=== PATIENT | female | born 1980 | race Caucasian/White ===

== ENCOUNTER 2023-09-26 17:52 | Emergency (ER) | payer OTHER, SELFPAY ==
[2023-09-26 18:02] VITALS: BP 161/100; PULSE 73; RESP 18; TEMP 36.6; O2SAT 98; BMI 37.8
--- NOTE | 2023-09-26 18:05 | ED.GENADULT ---
HPI - General Adult General Chief complaint: Headache/Migraine Stated complaint: migraine x3 days Time Seen by Provider: 09/26/23 17:55 History of Present Illness HPI narrative: Patient c/o general headache all over since Tuesday. Patient states h/o on migraines, but not this bad. Patient c/o photosensitivit y and denies nausea. Patient recently finished a course of macrobid for a UTI. 43-year-old woman presenting to the emergency department with concern of a headache. There is underlying history of migraines apparently. Sounds like they were menstrual related. Headache has been going on for somewhere between 2-4 days. She has not had any fever. No rash described. Has been alternating ibuprofen and acetaminophen and did try a triptan from a colleague. Preceding this was urinary tract infection and no more symptoms from that as far she knows. Was treated with Macrobid. who accompanies describes some complaint of neck pain earlier. Headache is more general at this point. She is photophobic. Nausea comes and goes. Has not vomited. Related Data Home Medications ?Medication ?Instructions ?Recorded ?Confirmed No Known Home Medications 09/26/23 09/26/23 Allergies Allergy/AdvReac Type Severity Reaction Status Date / Time No Known Drug Allergies Allergy Verified 09/26/23 18:05 Review of Systems Status of ROS: Reports: 6 or more systems reviewed and unremarkable except as noted in History and below [facility] Medical History Preeclampsia ?O14.90 - Unspecified pre-eclampsia, unspecified trimester (ICD-10) GERD (gastroesophageal reflux disease) ?K21.9 - Gastro-esophageal reflux disease without esophagitis (ICD-10) Surgical History S/P cholecystectomy ?Z90.49 - Acquired absence of other specified parts of digestive tract (ICD-10) Social History Smoking Status: Never smoker Do you use any of these nicotine containing products: None How often do you have a drink containing alcohol: never How often do you have six or more drinks on one occasion: Never AUDIT-C Alcohol total score: 0 Non-prescribed substance use: denies use service: No Exam Narrative: Exam Narrative: Pleasant. Clearly uncomfortable. Begins tearing up as we are talking in a darkened room. Skin is warm and dry. No evidence of rash on exposed skin. Kernig's/Brudzinski's is negative. Neck is supple. Lungs appear to be clear. Heart in regular rate and rhythm. Moving all extremities without difficulty. Well-perfused. No lower extremity edema. Cranial nerves 2-12 intact. Const: Vital Signs, click to edit/add: Vital Signs - 24 hr 09/26/23 18:02 Temperature 97.8 F Pulse Rate [Left P ulse Oximeter] 73 Respiratory Rate 18 Blood Pressure [Le ft Upper Arm] 161/100 H Pulse Oximetry 98 Oxygen Delivery Me thod Room Air Documenting provider has reviewed patient's vital signs: yes Course Vital Signs Vital signs: Initial Vital Signs Temperature 97.8 F 09/26/23 18:02 Temperature Source Temporal Artery Scan 09/26/23 18:02 Pulse Rate 73 09/26/23 18:02 Pulse Rhythm Regular 09/26/23 18:02 Respiratory Rate 18 09/26/23 18:02 Blood Pressure 161/100 H 09/26/23 18:02 Blood Pressure Mean 120 H 09/26/23 18:02 Blood Pressure Position Semi-Fowlers 09/26/23 18:02 Pulse Oximetry 98 09/26/23 18:02 Oxygen Delivery Method Room Air 09/26/23 18:02 Vital Signs Temperature 97.8 F 09/26/23 18:02 Pulse Rate 73 09/26/23 18:02 Respiratory Rate 18 09/26/23 18:02 Blood Pressure 161/100 H 09/26/23 18:02 Pulse Oximetry 98 09/26/23 18:02 Oxygen Delivery Method Room Air 09/26/23 18:02 Temperature 97.8 F 09/26/23 18:02 Pulse Rate 73 09/26/23 18:02 Respiratory Rate 18 09/26/23 18:02 Blood Pressure 161/100 H 09/26/23 18:02 Pulse Oximetry 98 09/26/23 18:02 Oxygen Delivery Method Room Air 09/26/23 18:02 Medications Administered Medications: Discontinued Medications Generic Name Dose Route Start Last Admin Trade Name Freq PRN Reason Stop Dose Admin Diphenhydramine HCl 12.5 mg 09/26/23 18:12 09/26/23 19:09 Diphenhydramine 50 Mg/Ml Inj IVP 09/26/23 18:13 12.5 mg ONCE ONE Administration Sodium Chloride 1,000 mls @ 1,000 mls/hr 09/26/23 18:12 09/26/23 19:03 0.9 % Sodium Chloride 1000 Ml IV 09/26/23 19:11 1,000 mls/hr .Q1H ONE Administration Ketorolac Tromethamine 30 mg 09/26/23 18:13 09/26/23 19:08 Ketorolac 30 Mg/Ml Inj IVP 09/26/23 18:14 30 mg ONCE ONE Administration Ondansetron HCl 4 mg 09/26/23 18:12 09/26/23 19:05 Ondansetron 2 Mg/Ml Inj IVP 09/26/23 18:13 4 mg ONCE ONE Administration Medical Decision Making MDM Narrative Medical decision making narrative: Appears to have a significant headache. No red flags other than intensity of her headache which is atypical. Would offer symptomatic treatment at this point. Is afebrile here at the emergency department. Initiating IV normal saline. Ketorolac Zofran and diphenhydramine. Discussed next steps in options if this does not work. On reassessment overall is improved. See patient discharge plan for further discussion Discharge Plan Discharge Clinical Impression: Migraine Patient Disposition: Home w/ Parent or Adult Condition: Improved Additional Instructions: Hopefully can manage some good rest/sleep. Of course return for persistent recurrence of your headache not amenable to usual treatment, associated rash or fever. Prescriptions: No Action No Known Home Medications Follow Up/Referrals: Provider,Not a Local [Primary Care Provider] - Stand Alone Forms: English TV Info Instructions
[2023-09-26] MEDS: 0.9 % SODIUM CHLORIDE 1000 ml 1,000 ML IV (19:03)
[2023-09-26] MEDS: ONDANSETRON 2 MG/ML inj 4 MG IVP (19:05)
[2023-09-26] MEDS: KETOROLAC 30 MG/ML inj IVP (19:08)
[2023-09-26] MEDS: diphenhydrAMINE 50 MG/ML inj 12.5 MG IVP (19:09)
== END 2023-09-26 20:27 | disposition home or self-care (01) ==
PROVIDERS: Emergency Provider Family Medicine
DX: G43.909 Migraine, unspecified, not intractable, without status migrainosus (principal)
CPT/HCPCS: 96374; 96375; 99284; J1200; J1885; J2405; J7030

== ENCOUNTER 2025-01-06 12:17 | Outpatient (CLI) | payer OTHER, SELFPAY | END 2025-01-06 12:18 | disposition home or self-care (01) | LOC: NFLDREF 01-17 01:38 | PROVIDERS: Visit Provider Physician Assistant | DX: N39.0 Urinary tract infection, site not specified (principal) | CPT/HCPCS: 87086 ==